=== PATIENT | female | born 2000 | race Caucasian/White ===

== ENCOUNTER 2023-09-03 17:18 | Emergency (ER) | payer OTHER ==
[~2023-09-03] VITALS: Ht 154.9 cm; Wt 74.8 kg
[2023-09-03 17:58] VITALS: BP 118/67; PULSE 89; RESP 18; TEMP 98.4; O2SAT 98
[2023-09-03 18:19] VITALS: O2SAT 98
[2023-09-03 19:27] LABS: APPEARANCE,URINE SL CLOUDY (CLEAR); BILIRUBIN,URINE NEGATIVE (NEGATIVE); BLOOD, URINE NEGATIVE (NEGATIVE); COLOR,URINE YELLOW (YELLOW); LEUKOCYTE ESTERASE ,URINE 1+ (NEGATIVE); NITRITE, URINE NEGATIVE (NEGATIVE); PROTEIN,URINE NEGATIVE (NEGATIVE); UGLUCOSE NEGATIVE (NEGATIVE); UROBILINOGEN,URINE 0.2 EU/dL (0.2 - 1)
[2023-09-03 19:36] LABS: BACTERIA,URINE 2+ /HPF (None Seen); MUCUS,URINE 2+ /LPF (None Seen); RBC,URINE 0-5 /HPF (0-5); SQUAMOUS EPITHELIAL CELL,UR 20-50 /LPF (0-3 (FEW)); TRICHOMONAS,URINE None Seen /HPF (None Seen); YEAST,URINE None Seen /HPF (None Seen)
[2023-09-03] MEDS ORDERED: CLOT21CR VG ×2 (20:42→23:05)
[2023-09-03] MEDS ORDERED: CEPH-588 PO ×2 (20:43→23:05)
[2023-09-03 21:10] VITALS: BP 118/67; PULSE 89; RESP 18; TEMP 98.4; O2SAT 98
== END 2023-09-03 21:10 | disposition home or self-care (01) ==
LOC: MED 17:18
DX: O23.592 Infection of other part of genital tract in pregnancy, second trimester (principal); R82.71 Bacteriuria; B37.31 Acute candidiasis of vulva and vagina; Z3A.15 15 weeks gestation of pregnancy; Z79.899 Other long term (current) drug therapy; Z79.2 Long term (current) use of antibiotics; Z88.6 Allergy status to analgesic agent
CPT/HCPCS: 81001; 87086; 87210; 99284

== ENCOUNTER 2023-09-23 20:44 | Emergency (ER) | payer OTHER ==
[~2023-09-23] VITALS: Ht 157.5 cm; Wt 74.8 kg
[~2023-09-23 20:44] MED LIST: CEPH-588 PO; CLOT21CR VG
[2023-09-23 21:28] VITALS: BP 121/63; PULSE 90; RESP 16; TEMP 97.6; O2SAT 99
[2023-09-23] MEDS ORDERED: cefTRIAXone 1,000 MG in LIDOCAINE MPF 1% 2.1 ML IM ONE (23:40)
[2023-09-23] MEDS ORDERED: LIDOCAINE MPF 1% 5 ML ONE (23:44)
[2023-09-23] MEDS ORDERED: cefTRIAXone 1,000 MG VIAL ONE (23:44)
[2023-09-24] MEDS ORDERED: HYD2.5O TP (00:28)
[2023-09-24] MEDS ORDERED: CEPH-588 PO (00:28)
[2023-09-24 00:30] VITALS: BP 118/78; PULSE 82; RESP 17; TEMP 98; O2SAT 98
== END 2023-09-24 00:30 | disposition home or self-care (01) ==
LOC: MED 20:44
DX: L30.3 Infective dermatitis (principal); J45.909 Unspecified asthma, uncomplicated; Z88.5 Allergy status to narcotic agent; Z79.899 Other long term (current) drug therapy
CPT/HCPCS: 96372; 99283; J0696; J2001